=== PATIENT | female | born 1960 | race Caucasian/White ===

== ENCOUNTER → 2017-01-18 | Outpatient (CLI) | payer BC ==
--- NOTE | 2017-01-20 10:47 | MM ---
Reason for exam: screening (asymptomatic). Last mammogram was performed 1 year and 2 months ago. History: Patient had first child at age 36. Physical Findings: A clinical breast exam by your physician is recommended on an annual basis and results should be correlated with mammographic findings. MG 3D Screening Mammo W/Cad Bilateral CC and MLO view(s) were taken. Prior study comparison: November 27, 2015, bilateral MG screening mammo w CAD. November 04, 2013, bilateral MG screening mammo w CAD. The breast tissue is heterogeneously dense. This may lower the sensitivity of mammography. No significant changes when compared with prior studies. ASSESSMENT: Negative, BI-RAD 1 RECOMMENDATION: Routine screening mammogram of both breasts in 1 year.
== END | disposition home or self-care (01) ==
LOC: RADMAMWWP 06:57
PROVIDERS: ATTEND Family Medicine
DX: Z12.31 Encounter for screening mammogram for malignant neoplasm of breast (principal)
CPT/HCPCS: 77063; G0202

== ENCOUNTER → 2017-05-16 | Outpatient (CLI) | payer BC ==
--- NOTE | 2017-05-17 08:23 | XR ---
Left shoulder HISTORY: Left shoulder pain 3 views of the left shoulder Bone mineralization, joint spaces and alignment are maintained. Left lung apex as visualized is milton l. IMPRESSION: No fracture or dislocation. Shoulder MRI may be of benefit.
== END | disposition home or self-care (01) ==
LOC: RADXRYALE 16:16
PROVIDERS: ATTEND Family Medicine
DX: M25.512 Pain in left shoulder (principal)

== ENCOUNTER → 2018-03-02 | Outpatient (CLI) | payer BC ==
--- NOTE | 2018-03-08 09:49 | MM ---
Reason for exam: screening (asymptomatic). Last mammogram was performed 1 year and 1 month ago. History: Patient had first child at age 36. Physical Findings: A clinical breast exam by your physician is recommended on an annual basis and results should be correlated with mammographic findings. MG 3D Screening Mammo W/Cad Bilateral CC and MLO view(s) were taken. Prior study comparison: January 18, 2017, bilateral MG 3d screening mammo w/cad. November 27, 2015, bilateral MG screening mammo w CAD. The breast tissue is heterogeneously dense. This may lower the sensitivity of mammography. There is no discrete abnormality. ASSESSMENT: Negative, BI-RAD 1 RECOMMENDATION: Routine screening mammogram of both breasts in 1 year.
== END ==
LOC: RADMAMWWP 14:59
PROVIDERS: ATTEND Obstetrics & Gynecology
DX: Z12.31 Encounter for screening mammogram for malignant neoplasm of breast (principal)
CPT/HCPCS: 77063; 77067

== ENCOUNTER → 2018-03-26 | Outpatient (CLI) | payer BC ==
--- NOTE | 2018-03-26 07:58 | US ---
EXAMINATION TYPE: US pelvis complete transvag DATE OF EXAM: 03/26/2018 COMPARISON: NONE CLINICAL HISTORY: N93.8 dys uterine bleeding. TECHNIQUE: Transvaginal (TV) and Transabdominal (TA) . Transabdominal sonographic images of the pel vis were acquired. Transvaginal sonographic images were medically necessary to better assess the fol lowing anatomy: Date of LMP: no regular cycles for 2 years, irregular cycles off and on. patient has never gone 1 ye ar without cycles. EXAM MEASUREMENTS: Uterus: 8.7 x 5.1 x 7.4 cm Endometrial Stripe: 0.3 cm Right Ovary: 2.9 x 2.0 x 2.1 cm Left Ovary: 2.9 x 2.9 x 2.5 cm 1. Uterus: Anteverted heterogeneous echotexture, bulky uterus. At least one fibroid seen, anterior measures 1.4 x 1.3 x 1.5 cm. Nabothian cyst measures 2.1 x 1.6 x 1.8 cm. 2. Endometrium: difficult to discern due to heterogeneous uterus although does not appear enlarged 3. Right Ovary: wnl 4. Left Ovary: 2.3 x 1.7 x 2.2 cm cyst. 5. Bilateral Adnexa: wnl 6. Posterior cul-de-sac: no free fluid IMPRESSION: 1. Diffusely heterogenous uterus with at least one well-circumscribed probable uterine leiomyoma wilver uring 1.5 cm but suspicion for other less well circumscribed uterine leiomyomas given the diffuse het erogeneity. 2. Although the endometrium is difficult to visualize given the diffuse heterogeneity of the uterine myometrium this appears within normal limits measuring approximately 3 mm. 3. Simple appearing 2.3 cm left ovarian cyst. In a postmenopausal female annual surveillances recomme nded for small uncomplicated cysts.
[2018-03-26 17:42] LABS: T3, Uptake 28 % (23-37)
[2018-03-26 17:43] LABS: Progesterone <0.2 ng/mL
[2018-03-27 02:57] LABS: T4, Free (Free Thyroxine) 1.41 ng/dL (0.78-2.19)
== END | disposition home or self-care (01) ==
LOC: RADUSWWP 06:48
PROVIDERS: ATTEND Obstetrics & Gynecology
DX: N83.202 Unspecified ovarian cyst, left side (principal); N93.8 Other specified abnormal uterine and vaginal bleeding
CPT/HCPCS: 36415; 76830; 76856; 82670; 83001; 83002; 84144; 84146; 84439; 84443; 84479; 84481

== ENCOUNTER → 2018-04-19 | Outpatient (CLI) | payer BC ==
[2018-04-19 08:10] LABS: Basophils % (A) 0 %; Eosinophils # (A) 0.1 k/uL (0-0.7); Eosinophils % (A) 1 %; HCT 42.2 % (34.0-46.0); HGB 12.9 gm/dL (11.4-16.0); Lymphocytes # (A) 1.6 k/uL (1.0-4.8); Lymphocytes % (A) 19 %; MCHC 30.7 g/dL (31.0-37.0); MCV 88.1 fL (80.0-100.0); Mean Platelet Volume 6.7; Monocytes # (A) 0.4 k/uL (0-1.0); Monocytes % (A) 5 %; Neutrophils % (A) 72 %; Platelet Count 413 k/uL (150-450); RBC 4.79 m/uL (3.80-5.40); WBC 8.3 k/uL (3.8-10.6)
== END | disposition home or self-care (01) ==
LOC: LABPAT 07:14
PROVIDERS: ATTEND Obstetrics & Gynecology
DX: Z01.818 Encounter for other preprocedural examination (principal); Z01.812 Encounter for preprocedural laboratory examination
CPT/HCPCS: 36415; 85025; 93005

== ENCOUNTER 2018-04-26 07:15 | Day surgery (SDC) | payer BC ==
[2018-04-24 14:36] VITALS: BMI 29.2
--- NOTE | 2018-04-25 18:06 | P.HPOB ---
History of Present Illness H&P Date: 04/25/18 Chief Complaint: Postmenopausal bleeding Dipika is a 57-year-old female with worsening vaginal bleeding over the last 12 months. She has not gone for more than a year without having. However, labs revealed her to be postmenopausal. Risks/benefits/alternatives to a D&C with hysteroscopy have been reviewed with the patient in detail and all questions were answered for her prior to proceeding to the operating room. Endometrium was noted to be normal but due to the fact that she continues to have vaginal bleeding and tissue sample to verify no hyperplasia or cancer has been decided on. On physical exam vital signs are stable and afebrile. Heart regular, lungs clear, extremities are without pain. Abdomen is soft nontender. Pelvic exam is otherwise unremarkable. Past Medical History Past Medical History: Hypertension Additional Past Medical History / Comment(s): post menopausal bleeding History of Any Multi-Drug Resistant Organisms: None Reported Past Surgical History: Section, Orthopedic Surgery Additional Past Surgical History / Comment(s): cervical discectomy. colonoscopy. rt wrist sx x 2 Past Anesthesia/Blood Transfusion Reactions: Previous Problems w/ Anesthesia, Motion Sickness Additional Past Anesthesia/Blood Transfusion Reaction / Comment(s): STATES HAS WOKE UP DURING PROCEDURES WITH MAC ANESTHESIA Smoking Status: Former smoker - Past Family History Mother Family Medical History: No Reported History Medications and Allergies Home Medications Medication Instructions Recorded Confirmed Type Losartan [Cozaar] 25 mg PO DAILY 04/24/18 04/24/18 History Allergies Allergy/AdvReac Type Severity Reaction Status Date / Time amoxicillin AdvReac Itching Verified 04/24/18 14:29 Exam Osteopathic Statement: *. No significant issues noted on an osteopathic structural exam other than those noted in the History and Physical/Consult. - OBG Physical Exam Breast: both: normal (no masses) Abdomen: bowel sounds normal, no diffuse tenderness, no bruit present, no guarding noted, no hepatomegaly, no splenomegaly, no mass Vulva: both: normal Vagina: normal moisture, no discharge Cervix: no lesion, no discharge Uterus: normal size, normal contour Adnexa: both: normal Anus/Rectum: normal perianal skin, no rectal mass, no hemorrhoids, heme negative
[~2018-04-26 07:15] MED LIST: DEXAMETHASONE SOD PHOSPHATE 10 MG/ML 1 ML VIAL IV ONE; LACTATED RINGERS 1,000 ML IV SCH; LIDOCAINE 1% 20 ML VIAL (10MG/ML) FOR IV START INTRADERMA PRN; MIDAZOLAM (PF) 2 MG/2 ML VIAL IV PRN; ONDANSETRON 4 MG/2 ML VIAL IVP ONE; Pre Op ABX Message 1 EACH MISC MISCELLANE ONE; fentaNYL (PF) 50 MCG/ML 2 ML AMP IV PRN
[2018-04-26] MEDS ORDERED: LIDOCAINE 1% INJ 10MG/ML (20 ML MDV) ONE (09:07)
[2018-04-26] MEDS ORDERED: KETOROLAC 30 MG/ML 1 ML VIAL ONE (09:07)
[2018-04-26] MEDS ORDERED: PROPOFOL 10 MG/ML 20 ML VIAL IV ONE (09:07)
[2018-04-26] MEDS ORDERED: fentaNYL (PF) 50 MCG/ML 2 ML AMP ONE (09:07)
[2018-04-26] MEDS ORDERED: MIDAZOLAM 2 MG/2 ML VIAL ONE (09:07)
--- NOTE | 2018-04-26 09:48 | P.OP ---
Date of Procedure: 04/26/18 Preoperative Diagnosis: Postmenopausal bleeding Postoperative Diagnosis: Same Procedure(s) Performed: Dilation and curettage Anesthesia: CECELIA Surgeon: Francesco Gan Estimated Blood Loss (ml): 5 Pathology: other (Uterine curettings) Condition: stable Disposition: same day Operative Findings: Scant tissue is noted. Was unable to do hysteroscopy due to cervical stenosis Description of Procedure: Patient was taken to the operating suite where general anesthetic was found be adequate. She was prepped and draped in normal sterile fashion placed in dorsal lithotomy position. Speculum was inserted into the vagina and the anterior lip of cervix was identified and grasped with a Allis clamp. Cervical stenosis is noted hemostat was initially used to enter the outer part of the cervix and then Hanks dilators were used to dilate the cervix. Was only able to dilate up about two [address] up would've liked to due to the stenosis. I was unable to pass the hysteroscope through the cervical os. Therefore sharp curettings of endometrium were obtained and sent to pathology for evaluation. No significant pathology is noted grossly and minimal tissue was collected. Once this was completed all instruments were removed. Sponge, lap, needle counts were all correct 2. Patient was then taken to the recovery room in stable and satisfactory condition. Plan - Discharge Summary Discharge Rx Participant: Yes New Discharge Prescriptions: New Ibuprofen [Motrin] 600 mg PO Q6HR PRN #30 tab PRN Reason: Pain No Action Losartan [Cozaar] 25 mg PO DAILY Discharge Medication List Losartan [Cozaar] 25 mg PO DAILY 04/24/18 [History] Ibuprofen [Motrin] 600 mg PO Q6HR PRN #30 tab 04/26/18 [Rx] Follow up Appointment(s)/Referral(s): Francesco Gan DO [Doctor of Osteopathic Medicine] - 1 Week Activity/Diet/Wound Care/Special Instructions: No heavy lifting, limit stairs and driving, and pelvic rest. If any high temperatures, heavy bleeding, or severe pain call my office Discharge Disposition: HOME SELF-CARE
[2018-04-26 09:52] VITALS: TEMP 97.4
[2018-04-26] MEDS: HYDROmorphone 0.5 MG/0.5 ML SYRINGE IVP PRN ×2 (10:11→10:16)
[2018-04-26 10:16] VITALS: RESP 16
[2018-04-26 11:40] VITALS: BP 111/79; PULSE 58
== END 2018-04-26 12:05 | disposition home or self-care (01) ==
LOC: OR 07:15
PROVIDERS: ATTEND Obstetrics & Gynecology
DX: N85.8 Other specified noninflammatory disorders of uterus (principal); N85.00 Endometrial hyperplasia, unspecified; N95.0 Postmenopausal bleeding; N88.2 Stricture and stenosis of cervix uteri; I10 Essential (primary) hypertension; Z79.899 Other long term (current) drug therapy; Z88.0 Allergy status to penicillin; Z87.891 Personal history of nicotine dependence
CPT/HCPCS: 81025; 88305; 58120; J2250; J2405; J2001; J3010; J1885; J2704; J1170

== ENCOUNTER → 2018-05-25 | Outpatient (CLI) | payer BC ==
--- NOTE | 2018-05-27 16:33 | CT ---
EXAMINATION TYPE: CT abdomen pelvis w con DATE OF EXAM: 05/25/2018 HISTORY: Pelvic pain x1 year CT DLP: 733.7mGycm Automated Exposure Control for Dose Reduction was Utilized. CONTRAST: CT scan of the abdomen and pelvis is performed with IV Contrast, patient injected with 100 mL of Isov ue 300. COMPARISON: Pelvic ultrasound dated 03/26/2018. FINDINGS: LUNG BASES: No significant abnormality is appreciated. LIVER/GB: There is a hypoattenuated left hepatic lesion that is too small to accurately characterize on series 3 image 13. Remainder the liver enhances homogeneously. No cholelithiasis is seen. PANCREAS: No significant abnormality is seen. SPLEEN: No significant abnormality is seen. ADRENALS: No significant abnormality is seen. KIDNEYS: The kidneys are slightly malrotated with the axis oriented anteriorly. Kidneys enhance and e xcrete symmetrically. BOWEL: Moderate amount retained colonic stool is seen throughout the bowel. Appendix is air-filled an d within normal limits. Soft tissue density seen within the cecum could represent stool products or c ecal mass. Colonoscopy is recommended. No dilated large or small bowel is seen. Contrast does not ext end to the level of the cecum, therefore limiting evaluation of the large bowel. UTERUS/ADNEXA: There is a fluid attenuated lesion within the lower uterine segment/cervix junction th is relates to a nabothian cyst is seen on the pelvic ultrasound 03/26/2018. LYMPH NODES: No greater than 1cm abdominal or pelvic lymph nodes are appreciated. OSSEOUS STRUCTURES: Nonspecific sclerotic lesion is present within L4 however this likely relates to a bone island. OTHER: Mild amount of atherosclerosis is seen of the abdominal aorta and its branches. IMPRESSION: 1. Soft tissue density within the cecum could relate to performed stool however colonic mass is a pos sibility and colonoscopy is recommended. 2. Few sigmoid colonic diverticula without evidence of acute diverticulitis.
== END ==
LOC: RADCTMAIN 13:24
PROVIDERS: ATTEND Family Medicine
DX: K57.30 Diverticulosis of large intestine without perforation or abscess without bleeding (principal); K59.9 Functional intestinal disorder, unspecified
CPT/HCPCS: 74177; Q9967

== ENCOUNTER 2018-06-19 09:31 | Day surgery (SDC) | payer BC ==
[2018-06-14 15:08] VITALS: BMI 29.2
[~2018-06-19 09:31] MED LIST changes: -DEXAMETHASONE SOD PHOSPHATE 10 MG/ML 1 ML VIAL IV ONE; -ONDANSETRON 4 MG/2 ML VIAL IVP ONE; -Pre Op ABX Message 1 EACH MISC MISCELLANE ONE; -fentaNYL (PF) 50 MCG/ML 2 ML AMP IV PRN
[2018-06-19 09:57] VITALS: RESP 16; TEMP 97.9
[2018-06-19] MEDS ORDERED: PROPOFOL 10 MG/ML 20 ML VIAL IV ONE (10:37)
[2018-06-19] MEDS ORDERED: LIDOCAINE 1% INJ 10MG/ML (20 ML MDV) ONE (10:37)
--- NOTE | 2018-06-19 11:00 | P.PCN ---
Date of Procedure: 06/19/18 Procedure(s) Performed: Procedure: Total colonoscopy. Preoperative diagnosis: Screening for neoplasia. Postoperative diagnosis: Diverticulosis with no evidence of acute diverticulitis, strictures, polyps or cancer. Preparation: HalfLytely prep. Sedation: Was provided by anesthesia. Brief clinical history: The patient is a 57-year-old female who is scheduled for this evaluation for screening for neoplasia. The patient had a prior exam in 2013, however, she had a recent CT of the abdomen because of abdominal pains that raised the possibility of a cecal mass. Procedure: With the patient on her left lateral decubitus position and after informed consent and adequate sedation, the perianal area was inspected and it did not show any fissures or fistulas. There were no masses felt on digital rectal examination. The Olympus CFH 190L video colonoscope was then inserted in the rectum in the usual fashion and advanced to the cecum. There was few diverticular orifices seen scattered in the sigmoid and occasional orifices around the hepatic flexure and on the right side with no evidence of acute diverticulitis or strictures. Particular attention was made to the cecum. It appeared normal there were no masses or polyps. I retroflexed the endoscope in the rectum before the endoscope was withdrawn. The patient tolerated the procedure well. Plan: The patient was reassured. Discussed dietary measures. She will follow- up with you as planned and I recommended repeat exam in 10 years.
[2018-06-19 11:23] VITALS: BP 145/82; PULSE 65
== END 2018-06-19 11:31 | disposition home or self-care (01) ==
LOC: ORWHC2ENDO 09:31
DX: Z12.11 Encounter for screening for malignant neoplasm of colon (principal); I10 Essential (primary) hypertension; K57.30 Diverticulosis of large intestine without perforation or abscess without bleeding; Z86.73 Personal history of transient ischemic attack (TIA), and cerebral infarction without residual deficits; Z88.0 Allergy status to penicillin; Z79.899 Other long term (current) drug therapy
CPT/HCPCS: 81025; J2001; J2704; G0121

== ENCOUNTER → 2018-07-04 | Outpatient (CLI) | payer BC ==
--- NOTE | 2018-07-09 13:32 | MR ---
EXAMINATION TYPE: MR lumbar spine wo con DATE OF EXAM: 07/04/2018 COMPARISON: CT abdomen and pelvis May 25, 2018 HISTORY: Low back pain TECHNIQUE: Multiplanar, multisequence imaging of the lumbar spine is performed without IV contrast. FINDINGS: Sagittal images of the lumbar spine show vertebral body heights and alignment to appear sat isfactory. Multilevel disc desiccation is seen but disc space heights are fairly well-maintained. Mil d multilevel anterior spurring is present. The conus medullaris is normal in position and signal end ing at inferior L1 level. Hemangioma at L2 vertebra sagittal image 8 is noted. Axial images show the T11-T12 and T12-L1 levels to appear within normal limits. Axial images at L1-L2 level show mild broad disc bulge minimally effacing anterior thecal sac. Axial images at L2-L3 level are felt within normal limits. Axial images at L3-L4 level show mild broad disc bulge mildly effacing anterior thecal sac. Axial images at L4-L5 level show mild/moderate facet degenerative changes bilaterally. There is broad -based posterior disc protrusion minimally effacing anterior thecal sac. There is mild right-sided an terior inferior neural foraminal narrowing. Left-sided neural foramen is patent. Axial images at the L5-S1 level show mild to moderate facet degenerative changes bilaterally. Spinal canal is preserved. Bilateral neural foramina are patent. There is suggestion of greater than 1 cm ovarian cyst sagittal image 4 to the left of midline which c orrelates with CT sagittal image 64. IMPRESSION: Some multilevel degenerative changes in the lumbar spine most prominent L4-L5 level as de tailed above. Suspect greater than 1 cm thin-walled cyst left ovary which is abnormal finding in post menopausal female, this correlates with pelvic ultrasound March 26, 2018.
--- NOTE | 2018-07-09 13:38 | MR ---
MRI CERVICAL SPINE: CLINICAL HISTORY: Cervical disc displacement per order. Numbness into left fingers with forearm pain per patient. History of prior surgery. TECHNIQUE: Multiplanar, multisequence imaging of the cervical spine is performed without and with IV contrast, 7.5 cc of gadolinium was given intravenously. COMPARISON: Outside MRI cervical spine July 21, 2012 FINDINGS: Sagittal images of the cervical spine show the craniocervical junction to remain within nor mal limits. The cervical and upper thoracic spinal cord remains normal in course, caliber, and signa l. There is stable grade 1 retrolisthesis of C5 on C6 and to lesser degree C6 on C7. There is now art ifact from fusion hardware anterior aspects C5-C6 vertebra. The vertebral body and intravertebral dis k heights otherwise are normal. The bone marrow signal intensity is within normal limits. No suspici ous enhancement is seen. Axial images at the C2-C3 level redemonstrate stable tiny central disc protrusion mildly effacing ant erior thecal sac on axial image 46. Axial images at C3-C4 level remain within normal limits. Axial images at C4-C5 level redemonstrate broad-based central disc protrusion mildly effacing anterio r thecal sac, bilateral neural foramina are patent. No significant change from prior. Axial images at C5-C6 level show artifact from surgical hardware with persistent posterior disc protr usion effacing anterior thecal sac on axial image 22, there is persistent mild right greater than lef t bilateral neural foraminal narrowing. No progression noted from prior. Axial images at C6-C7 level show broad-based central disc protrusion effacing anterior thecal sac and spondylolysis, bilateral neural foramina are patent. Axial images at C7-T1 level show central disc protrusion mildly effacing anterior thecal sac on axial image 6, no significant progression from prior. Bilateral neural foramina are patent. IMPRESSION: Interval surgery C5-C6 level with stable alignment. Multilevel degenerative changes redem onstrated without new significant disc herniation or significant progression from outside 2013 MRI.
== END | disposition home or self-care (01) ==
LOC: RADMRIMAIN 07:29
PROVIDERS: ATTEND Family Medicine
DX: M50.20 Other cervical disc displacement, unspecified cervical region (principal); M54.5 Low back pain
CPT/HCPCS: 72148; 72156; A9585

== ENCOUNTER → 2018-08-07 | Outpatient (CLI) | payer BC ==
[2018-08-07 11:45] LABS: Anion Gap 11 mmol/L; Blood Urea Nitrogen 11 mg/dL (7-17); Calcium 9.7 mg/dL (8.4-10.2); Carbon Dioxide 27 mmol/L (22-30); Chloride 103 mmol/L (98-107); Glucose 105 mg/dL (74-99); Potassium 4.2 mmol/L (3.5-5.1); Sodium 141 mmol/L (137-145)
[2018-08-07 12:16] LABS: Basophils % (A) 0 %; Eosinophils # (A) 0.1 k/uL (0-0.7); Eosinophils % (A) 2 %; HCT 42.4 % (34.0-46.0); HGB 13.4 gm/dL (11.4-16.0); Lymphocytes # (A) 1.6 k/uL (1.0-4.8); Lymphocytes % (A) 20 %; MCH 27.5 pg (25.0-35.0); MCHC 31.5 g/dL (31.0-37.0); MCV 87.1 fL (80.0-100.0); Mean Platelet Volume 7.2; Monocytes # (A) 0.4 k/uL (0-1.0); Monocytes % (A) 5 %; Neutrophils # (A) 5.6 k/uL (1.3-7.7); Neutrophils % (A) 71 %; Platelet Count 440 k/uL (150-450); RBC 4.87 m/uL (3.80-5.40); RDW 15.4 % (11.5-15.5); WBC 7.8 k/uL (3.8-10.6)
== END | disposition home or self-care (01) ==
LOC: LABWHC1 10:27
PROVIDERS: ATTEND Obstetrics & Gynecology
DX: Z01.812 Encounter for preprocedural laboratory examination (principal)
CPT/HCPCS: 36415; 80048; 85025

== ENCOUNTER 2018-08-13 05:43 | Day surgery (SDC) | payer BC ==
[~2018-08-13 05:43] MED LIST changes: +DEXAMETHASONE SOD PHOSPHATE 10 MG/ML 1 ML VIAL IV ONE; -LACTATED RINGERS 1,000 ML IV SCH; -MIDAZOLAM (PF) 2 MG/2 ML VIAL IV PRN; +MIDAZOLAM 2 MG/2 ML VIAL IV PRN; +ceFAZolin IN SWFI 2 GM/20 ML SYRINGE IVP ONE; +fentaNYL (PF) 50 MCG/ML 2 ML AMP IV PRN
[2018-08-13] MEDS: LACTATED RINGERS 1,000 ML IV SCH ×3 (06:42→13:58)
[2018-08-13] MEDS ORDERED: ONDANSETRON 4 MG/2 ML VIAL IVP ONE ×2 (06:44→11:16)
[2018-08-13] MEDS ORDERED: BUPIVACAINE (PF) 0.25% 30 ML VIAL SQ ONE ×3 (07:33→09:38)
[2018-08-13] MEDS ORDERED: fentaNYL (PF) 50 MCG/ML 2 ML AMP ONE (09:09)
[2018-08-13] MEDS ORDERED: ROCURONIUM BROMIDE 10 MG/ML 10 ML VIAL IV ONE (09:09)
[2018-08-13] MEDS ORDERED: PROPOFOL 10 MG/ML 20 ML VIAL IV ONE (09:09)
[2018-08-13] MEDS ORDERED: NEOSTIGMINE 1 MG/ML 10 ML VIAL ONE (09:09)
[2018-08-13] MEDS ORDERED: MIDAZOLAM 2 MG/2 ML VIAL ONE (09:09)
[2018-08-13] MEDS ORDERED: SUCCINYLCHOLINE CHLORIDE 100 MG/5 ML SYR IV ONE (09:09)
[2018-08-13] MEDS ORDERED: GLYCOPYRROLATE 0.2 MG/ML 2 ML VIAL ONE (09:09)
[2018-08-13] MEDS ORDERED: ONDANSETRON 4 MG/2 ML VIAL IVP PRN (10:58)
[2018-08-13] MEDS ORDERED: SIMETHICONE 80 MG CHEWABLE PO PRN (10:58)
[2018-08-13] MEDS ORDERED: Acetaminophen-Codeine 300-30mg TAB PO PRN ×2 (10:58)
[2018-08-13] MEDS ORDERED: MEPERIDINE 50 MG/ML SYRINGE IVP ONE (11:09)
--- NOTE | 2018-08-13 11:09 | P.OP ---
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 Bowel stuck to the posterior uterus just above the uterosacral ligament attachments as well as left ovary and tube scarred to the posterior uterus. Uterus very limited in mobility initially but after scar tissue was brought down there was significant improvement in mobility. Description of Procedure: Patient was taken to the operating suite where a general anesthetic was found be adequate. She was prepped and draped in normal sterile fashion and placed in the dorsal lithotomy position. Initially a weighted speculum was inserted in the vagina and the anterior lip of the cervix identified and grasped with a single-tooth tenaculum. Cervix was then sounded to 8 cm and dilated. Sutures were then placed 3 and 9 for assistance in removal of the uterus. Once this was accomplished Zora manipulator was inserted with a length of 8 and a width of 2.5 and once this was positioned Garcia cath was placed other instruments were re moved from the vagina. Gloves were then changed and attention was turned to abdominal portion procedure where 1 mL of quarter percent Marcaine was injected periumbilically. Through this injected anesthetic a setting a 5 mm skin incision was made and through this incision under direct visualization with an optical trocar and sleeve the camera was inserted. Once peritoneal placement was assured gas without the fully insufflate the abdomen and patient was placed in steep Trendelenburg position. 2 lateral ports were then placed approximately 10 cm from the umbilicus on the same level as the umbilicus through 8 mm skin incisions. These were da Citlali ports and sleeves a fourth port and sleeve was then inserted between the left lateral and the camera port 31 cm incision. Once all incisions were placed the left scopic was removed and a robotic port and sleeve were inserted followed by bringing in and docking the robot. Once robot was fully docked I did break scrub and go to the console with a Metzenbaum and the one hand and a [place] grasper in the 2. Uterus very difficult to initially elevate out of the pelvis at all once wheeled to fully assess we can see an endometrioma attached the left ovary adhering it to the posterior uterus and then the pelvis in the deep area head descending colon/rectum adherent to the uterosacral region of the uterus area right fallopian tube and ovary were otherwise normal. Sharp dissection and blunt dissection of the fallopian tube free from the posterior uterus was then done allowing it to be completely free we were able to then do in the infundibular pelvic ligament cauterized transected and then bring the tissue through the broad ligament tissues freeing the ovary and fallopian tube. Once were able to get to the round ligament probably was cauterized and transected and then anterior posterior leafs the broad ligament were developed. Anterior leaf the broad lid was then brought across face the uterus by undermining the tissue with [place] and incised with the scissor once fully across the uterus we were able to bluntly dissect the bladder out of the operative field. Attention was then turned to the right side this tissue was similarly developed. Once uterine vascular was cauterized bilaterally and upper adhesions were freed we did then do blunt dissection of the descending colon and rectum from the posterior cul-de-sac freeing it from its scarring behind the uterus just above the uterosacral ligament area. This was done bluntly with some brief sharp dissection to free the tissues as carefully as possible so we do bring them down below where we were actually doing the dissection. Once it was completely out of the expected operative field balloon was blown up and anterior compartment was made. This tissue was t hen followed in a clockwise fashion following the blue cup until about 9:00 at which point we did switch and then do clockwise from approximately 1:[address] around and meeting at 9:00 and cheating head when necessary cauterizing vascularity try maintaining hemostasis. There was one area a blood vessel along the border of the right side of the vaginal cuff that was bleeding along the pedicles collect cautery was ultimately able to obtain most of the hemostasis on this area but that was the reason for the relatively large blood loss for the robotic procedure. Once the uterus and cervix were completely dissected free from vagina was pushed down into the vagina and left there for pneumoperitoneum. At this point once of the majority ablate bleeding was controlled we did exchange the incidents for a cardia grasper and a make suture cut and a oh the lock suture was used to obtain the initial corner and then I did on the right side and then I did back track a little bit to try and get under the vessel that was bleeding earlier today Hemostasis once this was accomplished I brought the incision needle back into the vaginal cuff and close the vaginal cuff in a running fashion as per usual. Once this was accomplished minimal bleeding was noted anywhere in the pelvis. However a piece of cervix for CHOLO's no was placed as a precaution due to how much bleeding there was earlier as noted. Once all this was completed instruments were removed and gas allowed to expel from the abdomen. Dr. Hope and close these incisions subcuticularly with 4-0 Vicryl applied another 8 mL of quarter percent Marcaine around the incisions. I did do a cystoscopy and excellent flow was noted from both ureteral jets. No other abnormalities or findings are noted. Garcia catheter was replaced. Instruments are removed sponge, lap, needle counts were all correct 2. Patient was then taken to the recovery room in stable and satisfactory condition.
[2018-08-13] MEDS ORDERED: diphenhydrAMINE 50 MG/ML 1 ML VIAL IVP ONE (11:35)
[2018-08-13] MEDS ORDERED: METOCLOPRAMIDE 5 MG/ML 2 ML VIAL IVP ONE (11:53)
[2018-08-13 12:51] VITALS: BMI 29.1
[2018-08-13] MEDS: KETOROLAC 30 MG/ML 1 ML VIAL IVP PRN ×2 (13:51→20:12)
[2018-08-13] MEDS: SENNOSIDES-DOCUSATE SODIUM 1 EACH TAB PO SCH (20:12)
[2018-08-14 07:05] LABS: Basophils % (A) 0 %; Eosinophils % (A) 0 %; HCT 35.3 % (34.0-46.0); HGB 11.1 gm/dL (11.4-16.0); Lymphocytes % (A) 16 %; MCH 27.5 pg (25.0-35.0); MCHC 31.6 g/dL (31.0-37.0); Mean Platelet Volume 6.8; Monocytes # (A) 0.7 k/uL (0-1.0); Monocytes % (A) 6 %; Neutrophils # (A) 9.3 k/uL (1.3-7.7); Neutrophils % (A) 75 %; Platelet Count 381 k/uL (150-450); RBC 4.05 m/uL (3.80-5.40); RDW 15.2 % (11.5-15.5); WBC 12.4 k/uL (3.8-10.6)
[2018-08-14] MEDS: KETOROLAC 30 MG/ML 1 ML VIAL IVP PRN (07:56)
[2018-08-14] MEDS: SENNOSIDES-DOCUSATE SODIUM 1 EACH TAB PO SCH (08:00)
--- NOTE | 2018-08-14 08:01 | P.DS ---
Providers Expected date of discharge: 08/14/18 Attending physician: Francesco Gan [facility] Course: Dipika is doing very well postop day 1. She is involuting, voiding and she is tolerating her diet. We will advance to regular diet prior to discharge. She is passing flatus. On physical exam vital signs are stable and afebrile. Heart regular, lungs clear, extremities without pain. Abdomen is soft there are good bowel sounds noted through all quadrants. Incisions are intact. Assessment postop day 1. Plan discharged home follow up with me in 1 week. Prescription for Tylenol 3 and Motrin are provided and all questions were answered. There are review of discharge instructions was also completed. Assessment postop day 1. Plan discharged home follow up in 1 week. Patient Condition at Discharge: Good Plan - Discharge Summary Discharge Rx Participant: Yes New Discharge Prescriptions: New Ibuprofen [Motrin] 600 mg PO Q6HR PRN #30 tab PRN Reason: Pain Acetaminophen-Codeine 300-30mg [Tylenol #3] 1 tab PO Q4H PRN #30 tablet PRN Reason: Pain No Action Losartan [Cozaar] 25 mg PO QAM Discharge Medication List Losartan [Cozaar] 25 mg PO QAM 04/24/18 [History] Acetaminophen-Codeine 300-30mg [Tylenol #3] 1 tab PO Q4H PRN #30 tablet 08/14/18 [Rx] Ibuprofen [Motrin] 600 mg PO Q6HR PRN #30 tab 08/14/18 [Rx] Follow up Appointment(s)/Referral(s): Francesco Gan DO [Doctor of Osteopathic Medicine] - 1 Week Activity/Diet/Wound Care/Special Instructions: No heavy lifting, limit stairs and driving, and pelvic rest. If any high temperatures, heavy bleeding, or severe pain call my office Discharge Disposition: HOME SELF-CARE
[2018-08-14 12:03] VITALS: BP 139/73; PULSE 68; RESP 18; TEMP 98.6
== END 2018-08-14 10:10 | disposition home or self-care (01) ==
LOC: OR 05:43 → 4FBP 10:54 → OR 08-14 10:10
PROVIDERS: ATTEND Obstetrics & Gynecology
DX: N95.0 Postmenopausal bleeding (principal); N83.201 Unspecified ovarian cyst, right side; N80.1 Endometriosis of ovary; N80.0 Endometriosis of uterus; D25.9 Leiomyoma of uterus, unspecified; N83.8 Other noninflammatory disorders of ovary, fallopian tube and broad ligament; Z88.0 Allergy status to penicillin; Z87.891 Personal history of nicotine dependence; Z79.899 Other long term (current) drug therapy
CPT/HCPCS: 85025; 88307; 58571; J2250; J1200; J1100; J2710; J2765; J2175; J2405; J3010; J1885 ×2; J0330; J2704; J0690; 86850; 86900; 86901

== ENCOUNTER → 2018-12-04 | Outpatient (CLI) | payer BC ==
[2018-12-04 11:19] VITALS: BP 153/94; PULSE 69; RESP 16
--- NOTE | 2018-12-04 14:00 | P.PAINCN ---
History of Present Illness - Reason for Consult Consult date: 12/04/18 - History of Present Illness This is a 58-year-old patient referred to us or chronic pain in right buttock area and with radiation down the right leg. She states that 90% of her pain is in the right leg and 10% of her pain is in the right low back buttock area. She states that her pain started probably 15 years ago after a chiropractic adjustment. Previously was intermittent in nature, however in the past 1.5 years and has more been constant. She thinks that she has had some pain procedures for this pain, but she cannot remember exactly what it was, it could be that she had an epidural injection. These injections were marginally benefit. She also complains of some neck pain, however this is a minority of her pain, thus we focus on her low back and leg today. Her leg pain starts in her left buttock area, and radiates down the back of her thigh, the anterior portion of her knee, to her toes. She also has some pain on the back of her leg and calf also. Patient has been taking medications from primary care physician including gabapentin 600 mg in the morning, 600 mg in the afternoon, 1200 mg in the afternoon with benefit. Patient denies adverse drug effects from medications. Patient also denies new-onset weakness, bowel/bladder incontinence, or any other signs or symptoms of cauda equina syndrome. There are no signs of acute intoxication, and no indications of medication diversion or overuse. Patient notes that pain worsens significantly with activity and improves with rest, and medication. Patient has not had lumbar spine surgery but has had some cervical neck surgery. Patient HAS had injections previously. Patient HAS NOT had physical therapy recently. In addition to above, 13-point review of systems is also negative for chest pain, shortness of breath, changes in vision, changes in hearing, new onset weakness, abdominal pain, diarrhea, extreme fatigue, malaise, fever, skin changes, homicidal or suicidal ideation, or bowel or bladder incontinence. Past Medical History Past Medical History: CVA/TIA, Hypertension Additional Past Medical History / Comment(s): [id number] History of Any Multi-Drug Resistant Organisms: None Reported Past Surgical History: Section, Hysterectomy, Orthopedic Surgery Additional Past Surgical History / Comment(s): D & C,RT WRIST SX X 2. NECK SX fusion, COLONOSCOPY Past Anesthesia/Blood Transfusion Reactions: Previous Problems w/ Anesthesia, Postoperative Nausea & Vomiting (PONV) Additional Past Anesthesia/Blood Transfusion Reaction / Comm: WOKE UP DURING SURGERY with twilight anesthesia Past Psychological History: No Psychological Hx Reported Smoking Status: Former smoker Past Alcohol Use History: Occasional Additional Past Alcohol Use History / Comment(s): QUIT SMOKING 20 YEARS AGO Past Drug Use History: None Reported - Past Family History Mother Family Medical History: No Reported History Medications and Allergies Home Medications Medication Instructions Recorded Confirmed Type Gabapentin 1,200 mg PO HS 11/30/18 12/04/18 History Gabapentin 600 mg PO BID 11/30/18 12/04/18 History Losartan [Cozaar] 50 mg PO DAILY 11/30/18 12/04/18 History Naproxen Sodium [Aleve] 440 mg PO DAILY PRN 11/30/18 12/04/18 History Allergies Allergy/AdvReac Type Severity Reaction Status Date / Time amoxicillin Allergy Itching Verified 12/04/18 11:08 Physical Exam Vitals: Vital Signs Pulse Resp BP Pulse Ox 12/04/18 11:09 69 16 153/94 96 Vital Signs: Reviewed in EMR GENERAL: Well appearing, in no acute distress, PSYCH: Mood and affect is appropriate. Awake, alert, and oriented SKIN: Skin color, texture, turgor normal, no rashes or lesions HEENT: Normocephalic, atraumatic. EOM intact CV: No pedal edema RESP: Respirations are unlabored, no audible wheezing GI: Abdomen non-distended MUSCULOSKELETAL: Bilateral upper and lower extremity strength is normal and symmetric. No atrophy or tone abnormalities are noted. Lumbar spine: Very mild pain to palpation over the lumbar spine and paraspinous muscles. Negative for pain with facet loading and back extension/rotation. With seated straight leg test, she does report crampy-like sensation down her left leg. Extremities: Peripheral joint ROM is full and pain free without obvious instability or laxity in all four extremities. No edema or skin discolorations noted. Gait: Gait is anantalgic NEUR: Bilateral upper and lower extremity coordination and muscle stretch reflexes are physiologic and symmetric. No loss of sensation is noted. Cranial nerves are grossly intact. Results Comments: She has a lumbar MRI from 07/04/2018. The impression was some multilevel degenerative changes in the lumbar spine most prominent L4-L5 level as detailed above. She has a broad base disc bulge minimally effacing the anterior thecal sac at L4-L5. EMG from 11/13/2018 shows evidence of some right tibial mononeuropathy L5/S1 Assessment and Plan Assessment: Assessment: 1. Lumbar radiculopathy without myelopathy 2. Lumbar spondylosis 3. Cervicalgia, s/p neck surgery Today we focused primarily on her low back pain, if her neck pain becomes more problematic, we can consider procedures in that area. Plan: 1. Explanation: I explained to her the likely cause of her pain, given that she primarily has leg pain, her pain is likely lumbar radicular pain from her disc bulge. However the MRI shows only minor effacement of the thecal sac. Given that the disc bulges most prominent at the L4-L5 level we will pursue this option. Of note the EMG does show possible mononeuropathy, right tibial at L5- S1. The epidural at L4-L5 should provide some spread to the L5-S1 level, if this indeed is the primary area of her pain. 2. Opioid agreement: None 3. Counseling: The patient was counseled on stay active, specifically if the pa in improves with the epidural steroid injection she should aggressively pursue physical therapy. She did not receive a physical therapy prescription today, however if she should want to obtain one from our clinic we would gladly provided. 4. Procedures: We have scheduled her for a L4-L5 left paramedian epidural steroid injection. 5. Consultations: None 6. Investigations: Lumbar, cervical MRI reviewed. EMG reviewed 7. Medications: Encouraged patient to have discussions with primary care physician and continue gabapentin 8. Disposition: For lumbar epidural steroid injection , PQRS Measure Charge Sheet PQRS Narrative: Smoking Status Former smoker Blood Pressure 153/94 Pain Intensity [Left Buttock] 7 Scale Used Numeric (1 - 10) Hx Alcohol Use (MH) Yes: occasional Home Medications: Ambulatory Orders Gabapentin 1,200 mg PO HS 11/30/18 Gabapentin 600 mg PO BID 11/30/18 Losartan [Cozaar] 50 mg PO DAILY 11/30/18 Naproxen Sodium [Aleve] 440 mg PO DAILY PRN 11/30/18
== END | disposition home or self-care (01) ==
LOC: PNWHC3 11:02
PROVIDERS: ATTEND Student in an Organized Health Care Education/Training Program
DX: M51.16 Intervertebral disc disorders with radiculopathy, lumbar region (principal); M47.26 Other spondylosis with radiculopathy, lumbar region; M54.2 Cervicalgia; I10 Essential (primary) hypertension; Z98.1 Arthrodesis status; Z87.891 Personal history of nicotine dependence; Z79.1 Long term (current) use of non-steroidal anti-inflammatories (NSAID); Z79.899 Other long term (current) drug therapy; Z88.1 Allergy status to other antibiotic agents
CPT/HCPCS: 99211

== ENCOUNTER 2018-12-19 08:19 | Day surgery (SDC) | payer BC ==
[2018-12-17 11:36] VITALS: BMI 29.2
[~2018-12-19 08:19] MED LIST changes: -DEXAMETHASONE SOD PHOSPHATE 10 MG/ML 1 ML VIAL IV ONE; +LACTATED RINGERS 1,000 ML IV SCH; -LIDOCAINE 1% 20 ML VIAL (10MG/ML) FOR IV START INTRADERMA PRN; -MIDAZOLAM 2 MG/2 ML VIAL IV PRN; -ceFAZolin IN SWFI 2 GM/20 ML SYRINGE IVP ONE; -fentaNYL (PF) 50 MCG/ML 2 ML AMP IV PRN
[2018-12-19 08:57] VITALS: RESP 16; TEMP 96.9
[2018-12-19] MEDS ORDERED: IV FLUID CONTINUATION 850 ML IV ONE (10:11)
[2018-12-19 10:27] VITALS: BP 120/81; PULSE 62
--- NOTE | 2018-12-19 10:36 | P.PCN ---
Date of Procedure: 12/19/18 Procedure(s) Performed: PREOPERATIVE DIAGNOSIS: 1- Lumbar radiculopathy, Lumbar Degenerative Disc Diseases 2-Lumbar spondylosis with Facet arthropathy without myelopathy POSTOPERATIVE DIAGNOSIS: 1-Lumber Degenerative Disc Diseases 2-Lumbar spondylosis with Facet arthropathy without myelopathy PROCEDURE 1. Lumbar epidural steroid injection under fluoroscopic guidance at the L4-5 level using a left paramedian approach 2. Lumbar epidurogram. ANESTHESIA: Local with 1% lidocaine 3 ml, moderate sedation with intravenous Versed and fentanyl, sedation time 7 minutes Fluoroscopy was used for the procedure and images were saved in the radiology portion of the chart. EBL: Minimal PROCEDURE INDICATION: The patient with low back pain and radiculitis symptoms unresponsive to conservative treatment. Fluoroscopy was used to optimize visualization of the needle placement and to maximize safety. PROCEDURE DESCRIPTION / TECHNIQUE: The patient was seen and identified in the preoperative area. Risks, benefits, complications including but not limited to infections ,bleeding ,allergic reaction to the medications ,nerve damage and incomplete pain releif , and alternatives were discussed with the patient. The patient agreed to proceed with the procedure and signed the consent. IV was started, and vital signs were stable. Patient was taken to the OR and time out was completed. The patient was placed in the prone position on procedure table and a pillow was placed under the abdomen to reduce lumbar lordosis. The lumbosacral area was prepped and draped in the usual sterile fashion. Vitals were closely monitored during the procedure. Conscious sedation was used during the procedure to decrease patients anxiety. Using anterior-posterior fluoroscopy, the L4-5 interlaminar space was identified and the skin over this site was marked and then infiltrated with 1% lidocaine subcutaneously. Subsequently, a 20-gauge 3.5" Tuohy epidural needle was inserted and advanced toward the epidural space using the loss of resistance technique and guided by AP and lateral/ oblique fluoroscopy. The correct needle position in the epidural space was verified with the injection of 2 mL of the water soluble contrast dye Isovue 200 contrast under live fluoroscopy, observing an excellent epidurogram. Then, after negative aspiration for blood and CSF and in the absence of paresthesias, a 5 ml mixture containing 80 mg of Depo-medrol , 3 ml of preservative free Normal Saline, and 1 ml of preservative free lidocaine 1% solution was injected and a washout epidurogram was seen. Needle was withdrawn intact, skin was cleansed, and bandages were applied. COMPLICATIONS: None DISPOSITION / PLANS: The patient was placed in a supine position and transferred to the recovery area in a stable condition for observation. There was no evidence of lower extremity motor or sensory deficit after the procedure. Patient was discharged from the recovery room after meeting discharge criteria. Home discharge instructions were given to the patient by the staff. The patient will schedule a follow up in the clinic in 2-4 weeks.
--- NOTE | 2018-12-19 11:46 | FL ---
EXAMINATION TYPE: FL guided pain mgmt statistic DATE OF EXAM: 12/19/2018 HISTORY: Flouroscopy time 5 seconds of fluoroscopy provided. IMPRESSION: 1. Fluoroscopy time.
== END 2018-12-19 10:38 | disposition home or self-care (01) ==
LOC: ORPAIN 08:19
PROVIDERS: ATTEND Anesthesiology
DX: G89.29 Other chronic pain (principal); M47.26 Other spondylosis with radiculopathy, lumbar region; M51.16 Intervertebral disc disorders with radiculopathy, lumbar region; I10 Essential (primary) hypertension; Z86.73 Personal history of transient ischemic attack (TIA), and cerebral infarction without residual deficits; Z90.710 Acquired absence of both cervix and uterus; Z98.1 Arthrodesis status; Z87.891 Personal history of nicotine dependence; Z88.0 Allergy status to penicillin
CPT/HCPCS: 62323; J2250; J1030; J3010; Q9966

== ENCOUNTER → 2019-01-16 | Day surgery (SDC) | payer BC ==
[2019-01-14 11:25] VITALS: BMI 29.2
[2019-01-16 08:42] VITALS: TEMP 98.2
--- NOTE | 2019-01-16 09:36 | P.PCN ---
Date of Procedure: 01/16/19 Procedure(s) Performed: PREOPERATIVE DIAGNOSIS: Lumbar radicular pain POSTOPERATIVE DIAGNOSIS: Same PROCEDURE Lumbar epidural steroid injection under fluoroscopic guidance at the at L4-L5 level. ANESTHESIA: Local with 1% lidocaine 3 ml; no sedation was used EBL: Minimal PROCEDURE INDICATION: Lumbar radicular pain. PROCEDURE DESCRIPTION / TECHNIQUE: The patient was seen and identified in the preoperative area. Risks, benefits, complications including but not limited to infections ,bleeding ,allergic reaction to the medications ,nerve damage and not complete pain relief , and alternatives were discussed with the patient. The patient agreed to proceed with the procedure and signed the consent. IV was started, and vital signs were stable. Patient was taken to the OR and time out was completed. The patient was placed in the prone position on procedure table and a pillow was placed under the abdomen to reduce lumbar lordosis. The lumbosacral area was prepped and draped in the usual sterile fashion. The patient was closely monitored during the procedure. Conscious sedation was used during the procedure to decrease patients anxiety. Vital signs was monitored during the entire procedure. Using anterior-posterior fluoroscopy, the 4L5 interlaminar space was identified and the skin over this site was marked and then infiltrated with 1% lidocaine subcutaneously. Subsequently, a 20-gauge Tuohy epidural needle was inserted and advanced toward the epidural space using the loss of resistance technique and guided by AP and lateral fluoroscopy. The correct needle position in the epidural space was verified. After negative aspiration, a solution containing 80 mg Depo-Medrol, 2 mL's of 1% lidocaine, 2 MRIs of 1% preservative-free normal saline was injected. The needle was withdrawn intact, skin was cleansed, and bandages were applied. Images were saved to the chart. COMPLICATIONS: None DISPOSITION / PLANS: The patient was returned to the supine position and transferred to the recovery area in a stable condition for observation. There was no evidence of lower extremity motor or sensory deficit after the procedure. Patient was discharged from the recovery room after meeting discharge criteria. Home discharge instructions were given to the patient by the staff. Follow up plan: In clinic in a few weeks
[2019-01-16 09:42] VITALS: RESP 16
[2019-01-16 10:08] VITALS: BP 123/83; PULSE 61
--- NOTE | 2019-01-16 10:47 | FL ---
EXAMINATION TYPE: FL guided pain mgmt statistic DATE OF EXAM: 01/16/2019 HISTORY: Pain 10 SEC FLUORO, 3 IMAGES SCANNED
== END ==
LOC: ORPAIN 08:18
PROVIDERS: ATTEND Student in an Organized Health Care Education/Training Program
DX: M54.16 Radiculopathy, lumbar region (principal); Z90.710 Acquired absence of both cervix and uterus
CPT/HCPCS: 62323; J1030; Q9966

== ENCOUNTER → 2019-02-06 | Outpatient (CLI) | payer BC ==
[2019-02-06 13:15] VITALS: BP 135/91; PULSE 77; RESP 18
--- NOTE | 2019-02-08 12:55 | P.PAINPG ---
Subjective Progress Note Date: 02/06/19 This is a 58-year-old patient referred to us or chronic pain in right buttock area and with radiation down the right leg. She was diagnosed with lumbar radiculopathy, lumbar spondylosis. She underwent lumbar epidural steroid injections at L4-5 on 12/19/2018 and 01/16/2019. She returns today for follow- up. She reports no significant benefit from these procedures. Pain relief lasted may be a few days, but was not significant. She feels that a significant amount of her pain is generated from the left SI joint region. Pain is primarily located in the left buttock, and radiating to left posterior thigh. She also has some pain in left anterior leg. She states that she cannot lie on her left side due to pain. She does endorse numbness and tingling in the plantar aspect of her foot. She denies any weakness. Patient has been taking medications from primary care physician including gabapentin 600 mg in the morning, 600 mg in the afternoon, 1200 mg at night as well as Aleve 400-600 mg twice a day with some benefit. Patient denies adverse drug effects from medications. Patient also denies new-onset weakness, bowel/bladder incontinence, or any other signs or symptoms of cauda equina syndrome. There are no signs of acute intoxication, and no indications of medication diversion or overuse. In addition to above, 13-point review of systems is also negative for chest pain, shortness of breath, changes in vision, changes in hearing, new onset weakness, abdominal pain, diarrhea, extreme fatigue, malaise, fever, skin changes, homicidal or suicidal ideation, or bowel or bladder incontinence. Physical Exam Vital Signs: Reviewed in EMR GENERAL: Well appearing, in no acute distress, PSYCH: Mood and affect is appropriate. Awake, alert, and oriented SKIN: Skin color, texture, turgor normal, no rashes or lesions HEENT: Normocephalic, atraumatic. EOM intact CV: No pedal edema RESP: Respirations are unlabored, no audible wheezing GI: Abdomen non-distended MUSCULOSKELETAL: Bilateral upper and lower extremity strength is normal and symm etric. No atrophy or tone abnormalities are noted. Lumbar spine: Tenderness to palpation over the lumbar spine and paraspinous muscles bilaterally. SI joints: Tender to palpation of left PSIS. Diamond's test is positive on the left, Marisela test is positive on the left, Gaenslen's test positive on the left Extremities: Peripheral joint ROM is full and pain free without obvious instability or laxity in all four extremities. No edema or skin discolorations noted. NEUR: Bilateral lower extremity coordination and muscle stretch reflexes are physiologic and symmetric. No loss of sensation is noted. Cranial nerves are grossly intact. Results Comments: She has a lumbar MRI from 07/04/2018. The impression was some multilevel degenerative changes in the lumbar spine most prominent L4-L5 level as detailed above. She has a broad base disc bulge minimally effacing the anterior thecal sac at L4-L5. EMG from 11/13/2018 shows evidence of some right tibial mononeuropathy L5/S1 Assessment and Plan Assessment: Assessment: 1. Lumbar radiculopathy without myelopathy 2. Lumbar spondylosis 3. Left SI joint dysfunction 3. Cervicalgia, status post surgery Today we focused primarily on her low back pain, if her neck pain becomes more problematic, we can consider procedures in that area. Plan: 1. Explanation: I explained to her pain is likely multifactorial, due to lumbar radiculopathy, lumbar spondylosis as well as SI joint dysfunction. She obtained no benefit from lumbar epidural steroid injection. We will perform a left sided SI joint injection, I did extend to the patient that this is unlikely to help her anterior leg pain. She expressed understanding and is agreeable since her primary pain complaint is left buttocks. 2. Opioid agreement: None 3. Counseling: The patient was counseled to stay active, specifically if the pain improves with SI joint injection she should aggressively pursue physical therapy. She did not receive a physical therapy prescription today, however if she should want to obtain one from our clinic we would gladly provided. 4. Procedures: We have scheduled her for a left SI joint injection 5. Consultations: None 6. Investigations: Lumbar MRI reviewed. EMG reviewed 7. Medications: Managed by primary care physician 8. Disposition: For left SI joint injection , Objective - Vital Signs Vital signs: Vital Signs Temp Pulse 77 02/06/19 13:09 Resp 18 02/06/19 13:09 BP 135/91 02/06/19 13:09 Pulse Ox 97 02/06/19 13:09 PQRS Measure Charge Sheet Measure #130: Documentation of Current Meds in Medical Chart: Patient's medications documented in chart Measure #226: Tobacco Use: Screen & Cessation Intervention: Pt not a tobacco user Measure #111: Pneumonia Vaccination: Pneumococcal vaccine NOT administered or previously given Measure #47: Advance Care Plan: Advance care planning discussed & documented, pt chose/unable to give Measure #412: Opioid Treatment Agreement: No documentation of signed opioid treatment agreement Measure #408: Opioid Therapy Follow-up Evaluation: Patient had NO f/u eval minimum every 3 months during opioid therapy Measure #317: Preventitive Care & Scrn High Bld Press & F/U: Pre-hypertensive or hypertensive BP documented, pt will f/u with PCP Measure #128: Body Mass Index (BMI) Screening & Follow-up: BMI documented within normal parameters Measure #131: Pain Assessment & Follow-up: Pain positive & plan documented, Follow-up scheduled Measure #431: Unhealthy Alcohol Use Preventative Care & Scrn: Patient not identified as an unhealthy alcohol user PQRS Narrative: Smoking Status Former smoker Blood Pressure 135/91 Pain Intensity [Back] 3 Scale Used Numeric (1 - 10) Hx Alcohol Use (MH) Yes: occasional Home Medications: Ambulatory Orders Gabapentin 1,200 mg PO HS 11/30/18 Gabapentin 600 mg PO BID 11/30/18 Losartan [Cozaar] 50 mg PO DAILY 11/30/18 Naproxen Sodium [Aleve] 440 mg PO DAILY PRN 11/30/18 Controlled Substance Measures - Controlled Substance Measures Is patient prescribed a controlled substance at discharge?: No
== END | disposition home or self-care (01) ==
LOC: PNWHC3 13:03
PROVIDERS: ATTEND Anesthesiology
DX: M47.26 Other spondylosis with radiculopathy, lumbar region (principal); M53.3 Sacrococcygeal disorders, not elsewhere classified; Z98.890 Other specified postprocedural states; Z87.891 Personal history of nicotine dependence; Z79.1 Long term (current) use of non-steroidal anti-inflammatories (NSAID); Z79.899 Other long term (current) drug therapy
CPT/HCPCS: 99211

== ENCOUNTER 2019-02-18 06:29 | Day surgery (SDC) | payer BC ==
[2019-02-14 15:24] VITALS: BMI 29.7
[2019-02-18 06:47] VITALS: TEMP 97.1
--- NOTE | 2019-02-18 07:29 | P.PCN ---
Date of Procedure: 02/18/19 Procedure(s) Performed: Preoperative diagnoses: left sacroilitis Postoperative diagnoses: left sacroilitis. Procedure: left sacroiliac joint steroid injection under fluoroscopic guidance. Surgeon: Raomn Perez MD Anesthesia: [2 mL of 1% lidocaine/IV sedation per hospital guidelines], no IV sedation was given Fluoroscopy was used for the procedure and fluoroscopic images were saved to the radiology portion of the patient's chart. EBL: None Procedure indication: The patient had a history of severe chronic low back pain, diagnosed with sacroiliitis unresponsive to conservative treatment. Procedure description: The patient was seen and identified in the preoperative holding area, risks and benefits and alternative of the procedure and possible complications discussed with the patient, and patient agreed with the preceding, patient signed the consent, an IV was started, and vital signs were monitored and were stable throughout the procedure, patient was placed in the prone position on table and the lumbosacral area was prepped and draped with a sterile fashion, vital signs were closely monitored during the procedure, the fluoroscopy camera was placed in the contralateral oblique view on the left sacroiliac joint and the lower part of the joint was identified . Then the skin and subcutaneous tissue was anesthetized using 2 mL of 1% lidocaine then a 22- gauge Quincke-type spinal needle advanced slowly under fluoroscopy and placed in the posterior and inferior border of the left sacroiliac joint, placement confirmed with AP and lateral view, and after appropriate needle placement confirmed and after negative aspiration for heme, 1 mL of Isovue 200 was injected revealing intra-articular spread. Then a solution consisting of 2 ml of ropivacaine 0.5% and 40 mg of Kenalog injected after negative aspiration, no paresthesia during the injection, no resistance to injection, and the needle was removed. Patient tolerated the procedure well without any complication. The patient was returned to supine position after the back was cleaned and a Band-Aid applied, the patient was transported to recovery room in stable condition and monitored for 30 minutes before being discharged home. The patient will follow up with the pain clinic in a few weeks
[2019-02-18 07:35] VITALS: BP 135/89; PULSE 66; RESP 16
--- NOTE | 2019-02-18 09:23 | FL ---
EXAMINATION TYPE: FL guided pain mgmt statistic DATE OF EXAM: 02/18/2019 HISTORY: Flouroscopy time 5 seconds of fluoroscopy provided. IMPRESSION: 1. Fluoroscopy time.
== END 2019-02-18 07:52 | disposition home or self-care (01) ==
LOC: ORPAIN 06:29
PROVIDERS: ATTEND Anesthesiology
DX: G89.29 Other chronic pain (principal); M46.1 Sacroiliitis, not elsewhere classified; M53.3 Sacrococcygeal disorders, not elsewhere classified; M47.26 Other spondylosis with radiculopathy, lumbar region; M51.16 Intervertebral disc disorders with radiculopathy, lumbar region; Z88.0 Allergy status to penicillin; Z87.891 Personal history of nicotine dependence; Z79.899 Other long term (current) drug therapy
CPT/HCPCS: 27096; J3301; Q9966

== ENCOUNTER → 2019-02-22 | Outpatient (CLI) | payer BC ==
--- NOTE | 2019-02-22 14:43 | US ---
EXAMINATION TYPE: US carotid duplex BILAT DATE OF EXAM: 02/22/2019 COMPARISON: NONE CLINICAL HISTORY: G45.9 TIA. Dizziness EXAM MEASUREMENTS: RIGHT: Peak Systolic Velocity (PSV) cm/sec ----- Right CCA: 81.5 ----- Right ICA: 128 ----- Right ECA: 117 ICA/CCA ratio: 1.5 RIGHT: End Diastole cm/sec ----- Right CCA: 23.1 ----- Right ICA: 30.6 ----- Right ECA: 10.2 LEFT: Peak Systolic Velocity (PSV) cm/sec ----- Left CCA: 90.4 ----- Left ICA: 105 ----- Left ECA: 95.2 ICA/CCA ratio: 1.1 LEFT: End Diastole cm/sec ----- Left CCA: 25.1 ----- Left ICA: 68.6 ----- Left ECA: 14.6 VERTEBRALS (direction of flow): Right Vertebral: Antegrade Left Vertebral: Antegrade Rhythm: Normal Moderate amount of plaque visualized in bilateral bulbs. Slightly elevated velocity in proximal right ICA although the internal carotid artery to common carotid artery ratio is within normal limits. IMPRESSION: Moderate degree of grayscale atheromatous plaquing with no sonographically evident hemod ynamically significant stenosis within either visualized carotid arterial system. Criteria for Assigning % of Stenosis / Diameter reduction (Estimation based on the indirect measurements of the internal carotid artery velocities (ICA PSV). 1. Normal (no stenosis)=ICA PSV < 125 cm/s: ratio < 2.0: ICA EDV<40 cm/s. 2. Less than 50% stenosis=ICA PSV < 125 cm/s: ratio < 2.0: ICA EDV<40 cm/s. 3. 50 to 69% stenosis=ICA PSV of 125 to 230 cm/s: ration 2.0 ? 4.0: ICA EDV 40-100 cm/s. 4. Greater than 70% stenosis to near occlusion= ICA PSV > 230 cm/s: ratio > 4.0: ICA EDV > 100 cm/s. 5. Near occlusion= ICA PSV velocities may be low or undetectable: variable ratio and ICA EDV. 6. Total occlusion=unable to detect flow.
--- NOTE | 2019-02-23 10:43 | ECHOF ---
Referral Reason:G45.9 TIA MEASUREMENTS -------- HEIGHT: 162.6 cm WEIGHT: 77.1 kg BP: RVIDd: 3.5 cm (< 3.3) IVSd: 0.9 cm (0.6 - 1.1) LVIDd: 4.6 cm (3.9 - 5.3) LVPWd: 0.9 cm (0.6 - 1.1) IVSs: 1.5 cm LVIDs: 2.9 cm LVPWs: 1.3 cm LAESV Index (A-L): 19.14 ml/m Ao Diam: 2.5 cm (2.0 - 3.7) AV Cusp: 1.7 cm (1.5 - 2.6) LA Diam: 3.4 cm (2.7 - 3.8) MV EXCURSION: 10.087 mm (> 18.000) MV EF SLOPE: 98 mm/s (70 - 150) EPSS: 0.3 cm MV E Zia: 0.67 m/s MV DecT: 355 ms MV A Zia: 0.70 m/s MV E/A Ratio: 0.95 RAP: 5.00 mmHg RVSP: 25.74 mmHg FINDINGS -------- Sinus rhythm. This was a technically good study. The left ventricular size is normal. Left ventricular wall thickness is normal. There is normal g lobal left ventricular contractility. Overall left ventricular systolic function is normal with, an EF between 60 - 65 %. The diastolic filling pattern is normal for the age of the patient 11.17. The right ventricle is normal in size. Normal LA size by volume 22+/-6 ml/m2. The right atrial size is normal. Interatrial and interventricular septum intact. The aortic valve is trileaflet and appears structurally normal. There is no evidence of aortic regu rgitation. There is no evidence of aortic stenosis. No mitral regurgitation. Mild tricuspid regurgitation present. There is no evidence of pulmonary hypertension. The right v entricular systolic pressure, as measured by Doppler, is 25.74mmHg. There is no pulmonic regurgitation present. The aortic root size is normal. Normal inferior vena cava with normal inspiratory collapse consistent with estimated right atrial pre ssure of 5 mmHg. There is no pericardial effusion. CONCLUSIONS -------- 1. Sinus rhythm. 2. This was a technically good study. 3. The left ventricular size is normal. 4. Left ventricular wall thickness is normal. 5. There is normal global left ventricular contractility. 6. Overall left ventricular systolic function is normal with, an EF between 60 - 65 %. 7. The diastolic filling pattern is normal for the age of the patient 11.17 8. The right ventricle is normal in size. 9. Normal LA size by volume 22+/-6 ml/m2. 10. The right atrial size is normal. 11. Interatrial and interventricular septum intact. 12. The aortic valve is trileaflet and appears structurally normal. 13. There is no evidence of aortic regurgitation. 14. There is no evidence of aortic stenosis. 15. No mitral regurgitation. 16. Mild tricuspid regurgitation present. 17. There is no evidence of pulmonary hypertension. 18. The right ventricular systolic pressure, as measured by Doppler, is 25.74mmHg. 19. There is no pulmonic regurgitation present. 20. The aortic root size is normal. 21. Normal inferior vena cava with normal inspiratory collapse consistent with estimated right atrial pressure of 5 mmHg. 22. There is no pericardial effusion. SOFTWARE DEVELOPMENT PROJECT MANAGER: Aishwarya Haider RDCS
== END | disposition home or self-care (01) ==
LOC: RADECHMAIN 13:02
PROVIDERS: ATTEND Family Medicine
DX: I65.23 Occlusion and stenosis of bilateral carotid arteries (principal); G45.9 Transient cerebral ischemic attack, unspecified
CPT/HCPCS: 93306; 93880

== ENCOUNTER → 2019-02-23 | Outpatient (CLI) | payer BC ==
--- NOTE | 2019-02-23 20:35 | MR ---
EXAMINATION TYPE: MR brain wo/w con DATE OF EXAM: 02/23/2019 COMPARISON: None HISTORY: TIA CONTRAST: Standard multiplanar, multisequence MRI departmental protocol utilizing 7.5 mL intravenous Gadavist g adolinium contrast. Ventricles have normal size. There is no mass effect nor midline shift. There is no sign of intracran ial hemorrhage. Diffusion images show no evidence of a cortical infarct. There is no evidence of cere bral edema. On the T2 and FLAIR images there are a few scattered areas of white matter increased sign al at the joshua-white matter junction of both cerebral hemispheres. Total number is approximately 5 an d the largest measures 6 mm. The brainstem is intact. Corpus callosum is intact. There is normal contrast opacification of the venous sinuses. I see no pathologic enhancement. Corpus callosum appears normal. Sella turcica is normal. IMPRESSION: There are a few scattered white matter high signal foci of uncertain significance. This could relate to minimal microvascular ischemia. Otherwise negative exam.
== END | disposition home or self-care (01) ==
LOC: RADMRIMAIN 11:12
PROVIDERS: ATTEND Family Medicine
DX: G45.9 Transient cerebral ischemic attack, unspecified (principal)
CPT/HCPCS: 70553; A9585

== ENCOUNTER → 2019-03-25 | Outpatient (CLI) | payer BC ==
--- NOTE | 2019-03-26 11:35 | MM ---
Reason for exam: screening (asymptomatic). Last mammogram was performed 1 year and 1 month ago. History: Patient is postmenopausal and had first child at age 36. Physical Findings: A clinical breast exam by your physician is recommended on an annual basis and results should be correlated with mammographic findings. MG 3D Screening Mammo W/Cad Bilateral CC and MLO view(s) were taken. Prior study comparison: March 02, 2018, bilateral MG 3d screening mammo w/cad. January 18, 2017, bilateral MG 3d screening mammo w/cad. There are scattered fibroglandular densities. There is no discrete abnormality. No significant changes when compared with prior studies. ASSESSMENT: Negative, BI-RAD 1 RECOMMENDATION: Routine screening mammogram of both breasts in 1 year.
== END | disposition home or self-care (01) ==
LOC: RADMAMWWP 08:01
PROVIDERS: ATTEND Family Medicine
DX: Z12.31 Encounter for screening mammogram for malignant neoplasm of breast (principal)
CPT/HCPCS: 77063; 77067

== ENCOUNTER 2019-10-03 06:21 | Day surgery (SDC) | payer BC ==
[2019-10-01 15:59] VITALS: BMI 27.9
[2019-10-03 06:39] VITALS: RESP 20; TEMP 97.4
[2019-10-03] MEDS ORDERED: TRIAMCINOLONE ACETONIDE 40 MG/ML 1 ML VIAL ONE (06:56)
[2019-10-03] MEDS ORDERED: IOPAMIDOL M200 10 ML VIAL ONE (06:56)
[2019-10-03] MEDS ORDERED: ROPIVACAINE 5MG/ML 20ML VIAL ONE (06:56)
--- NOTE | 2019-10-03 07:20 | P.PCN ---
Date of Procedure: 10/03/19 Procedure(s) Performed: Preoperative diagnoses: left sacroilitis Postoperative diagnoses: left sacroilitis. Procedure: left sacroiliac joint steroid injection under fluoroscopic guidance. Surgeon: Ramon Perez MD Anesthesia: 2 mL of 1% lidocaine, no IV sedation was given Fluoroscopy was used for the procedure and fluoroscopic images were saved to the radiology portion of the patient's chart. EBL: None Procedure indication: The patient had a history of severe chronic low back pain, diagnosed with sacroiliitis unresponsive to conservative treatment. Procedure description: The patient was seen and identified in the preoperative holding area, risks and benefits and alternative of the procedure and possible complications discussed with the patient, and patient agreed with the preceding, patient signed the consent, an IV was started, and vital signs were monitored and were stable throughout the procedure, patient was placed in the prone position on table and the lumbosacral area was prepped and draped with a sterile fashion, vital signs were closely monitored during the procedure, the fluoroscopy camera was placed in the contralateral oblique view on the left sacroiliac joint and the lower part of the joint was identified . Then the skin and subcutaneous tissue was anesthetized using 2 mL of 1% lidocaine then a 22- gauge Quincke-type spinal needle advanced slowly under fluoroscopy and placed in the posterior and inferior border of the left sacroiliac joint, placement confirmed with AP and lateral view, and after appropriate needle placement confirmed and after negative aspiration for heme, 1 mL of Isovue 200 was injected revealing intra-articular spread. Then a solution consisting of 2 ml of ropivacaine 0.5% and 40 mg of Kenalog injected after negative aspiration, no paresthesia during the injection, no resistance to injection, and the needle was removed. Patient tolerated the procedure well without any complication. The patient was returned to supine position after the back was cleaned and a Band-Aid applied, the patient was transported to recovery room in stable condition and monitored for 30 minutes before being discharged home. The patient will follow up with the pain clinic in a few weeks
[2019-10-03 07:40] VITALS: BP 115/70; PULSE 69
--- NOTE | 2019-10-03 08:20 | FL ---
EXAMINATION TYPE: FL guided pain mgmt statistic DATE OF EXAM: 10/03/2019 HISTORY: Fluoroscopy time 8 seconds of fluoroscopy provided. IMPRESSION: 1. Fluoroscopy time.
== END 2019-10-03 07:51 | disposition home or self-care (01) ==
LOC: ORPAIN 06:21
PROVIDERS: ATTEND Anesthesiology
DX: G89.29 Other chronic pain (principal); M46.1 Sacroiliitis, not elsewhere classified; Z88.0 Allergy status to penicillin; Z90.710 Acquired absence of both cervix and uterus
CPT/HCPCS: 27096; J3301; Q9966; J2795

== ENCOUNTER → 2019-11-13 | Outpatient (CLI) | payer BC ==
[2019-11-13 13:00] VITALS: BP 127/83; TEMP 98.3
[2019-11-13 13:04] VITALS: PULSE 66; RESP 16
--- NOTE | 2019-11-16 06:53 | P.PAINPG ---
Subjective Progress Note Date: 11/13/19 This is a follow-up visit for 59-year-old patient with history of chronic pain in rig buttock area and with radiation to the leg She was diagnosed with lumbar radiculopathy, lumbar spondylosis. She reports no significant benefit from these procedures. Pain relief lasted may be a few days, but was not s ignificant. She feels that a significant amount of her pain is generated from the left SI joint region. Pain is primarily located in the left buttock, and radiating to left posterior thigh. She also has some pain in left anterior leg. She states that she cannot lie on her left side due to pain. She does endorse numbness and tingling in the plantar aspect of her foot. She denies any weakness. Patient has been taking medications from primary care physician including gabapentin 600 mg in the morning, 600 mg in the afternoon, 1200 mg at night as well as Aleve 400-600 mg twice a day with some benefit. Patient denies adverse drug effects from medications. Patient also denies new-onset weakness, bowel/bladder incontinence, or any other signs or symptoms of cauda equina syndrome. There are no signs of acute intoxication, and no indications of medication diversion or overuse. In addition to above, 13-point review of systems is also negative for chest pain, shortness of breath, changes in vision, changes in hearing, new onset weakness, abdominal pain, diarrhea, extreme fatigue, malaise, fever, skin changes, homicidal or suicidal ideation, or bowel or bladder incontinence. Objective - Vital Signs Vital signs: Vital Signs Temp 98.3 F 11/13/19 12:55 Pulse 66 11/13/19 12:55 Resp 16 11/13/19 12:55 BP 127/83 11/13/19 12:55 Pulse Ox 96 11/13/19 12:55 - Exam Physical Examinations : -Constitutiona : Cooperative , not in acute distress . -HEENT : nech : supple , no Lymphadenopathy , normal thyroid size . : eyes : no ptosis , no icterus, no photophobia . - neurologic : Cranial nerve II to XII intact , no focal neurological deffecit . -psychatric : alert , oriented X 3 , appropriate affect , intact judgment and insight . -Lymphatic : no Lymphadenopathy . - musculoskeltal : Lumber spine moter stegnth lower extremities ,thigh and legs 5/5 Right side , 5/5 Left side deep tendon reflexes : normal Knee Jerk , normal ankle Jerk lumber facet Loading Test =positive Right , positive Left Range of motion of the lumbar spine Flexion 30 degrees, extension 10 degrees strait leg raising test = positive at 30 degree on the left side Fabere test= positive Right , and positive LT . Sever tenderness over the Sacroiliac joint on the Left sides Gaenslen test= positive left . Seated flexion test= positive Left . Assessment and Plan Plan: Assessment and plan=1-lumbar radiculopathy. 2-left sacroiliitis. 3-lumbar spondylosis with lumbar facet arthropathy. Patient could benefit from left-sided transforaminal epidural steroid injection at the L4 5 , and left sacroiliac joint steroid injection Time with Patient: Less than 30 PQRS Measure Charge Sheet Measure #130: Documentation of Current Meds in Medical Chart: Patient's medications documented in chart Measure #226: Tobacco Use: Screen & Cessation Intervention: Pt not a tobacco user Measure #111: Pneumonia Vaccination: Pneumococcal vaccine NOT administered or previously given Measure #47: Advance Care Plan: Advance care planning discussed & documented, pt chose/unable to give Measure #412: Opioid Treatment Agreement: No documentation of signed opioid treatment agreement Measure #408: Opioid Therapy Follow-up Evaluation: Patient had NO f/u eval minimum every 3 months during opioid therapy Measure #317: Preventitive Care & Scrn High Bld Press & F/U: Normal blood pressure, f/u not required Measure #128: Body Mass Index (BMI) Screening & Follow-up: BMI documented ABOVE normal parameters - f/u documented Measure #131: Pain Assessment & Follow-up: Pain positive & plan documented, Follow-up scheduled, Follow-up PRN Measure #431: Unhealthy Alcohol Use Preventative Care & Scrn: Patient not identified as an unhealthy alcohol user PQRS Narrative: Smoking Status Former smoker Blood Pressure 127/83 Pain Intensity [Left Leg] 3 Scale Used Numeric (1 - 10) Hx Alcohol Use (MH) Yes: occasional Home Medications: Ambulatory Orders Gabapentin 1,200 mg PO HS 11/30/18 Losartan [Cozaar] 50 mg PO DAILY 11/30/18 Naproxen Sodium [Aleve] 440 mg PO DAILY PRN 11/30/18 Aspirin 81 mg PO DAILY 10/01/19 Controlled Substance Measures - Controlled Substance Measures Is patient prescribed a controlled substance at discharge?: No
== END | disposition home or self-care (01) ==
LOC: PNWHC3 12:43
PROVIDERS: ATTEND Specialist
DX: G89.29 Other chronic pain (principal); M47.26 Other spondylosis with radiculopathy, lumbar region; M46.1 Sacroiliitis, not elsewhere classified; Z87.891 Personal history of nicotine dependence; Z79.82 Long term (current) use of aspirin; Z79.1 Long term (current) use of non-steroidal anti-inflammatories (NSAID)
CPT/HCPCS: 99211

== ENCOUNTER 2019-11-28 11:49 | Day surgery (SDC) | payer BC ==
[2019-11-26 09:14] VITALS: BMI 27.4
[2019-11-28 12:09] VITALS: TEMP 97.7
[2019-11-28] MEDS ORDERED: DEXAMETHASONE SOD PHOSPHATE 10 MG/ML 1 ML VIAL ONE (12:23)
[2019-11-28] MEDS ORDERED: ROPIVACAINE 5MG/ML 20ML VIAL ONE (12:23)
[2019-11-28] MEDS ORDERED: TRIAMCINOLONE ACETONIDE 40 MG/ML 1 ML VIAL ONE (12:23)
[2019-11-28] MEDS ORDERED: fentaNYL (PF) 50 MCG/ML 2 ML AMP ONE (12:23)
[2019-11-28] MEDS ORDERED: MIDAZOLAM 2 MG/2 ML VIAL ONE (12:23)
[2019-11-28] MEDS ORDERED: IOPAMIDOL M200 10 ML VIAL ONE (12:23)
--- NOTE | 2019-11-28 12:53 | P.PCN ---
Date of Procedure: 11/28/19 Surgeon: Mercy Lee Pathology: none sent Condition: stable Disposition: PACU Description of Procedure: PREOPERATIVE DIAGNOSIS: Left Lumbar radiculopathy , left sacroiliitis POSTOPERATIVE DIAGNOSIS: Left Lumbar radiculopathy , left sacroiliitis PROCEDURE 1. Transforaminal epidural steroid injection under fluoroscopic guidance at L4-5 left 2. Lumbar epidurogram. 3. Left sacroiliac joint steroid injection under fluoroscopic guidance SURGEON: Mercy Lee MD I started by doing the left transforaminal epidural steroid injection at the L4 5 level in the following manner: ANESTHESIA: Local with 1% lidocaine; IV sedation with Versed and fentanyl. EBL: Minimal PROCEDURE INDICATION: The patient with low back pain and radiculopathy symptoms unresponsive to conservative treatment. PROCEDURE DESCRIPTION / TECHNIQUE: The patient was seen and identified in the preoperative area. Risks, benefits, complications, and alternatives were discussed with the patient. The patient agreed to proceed with the procedure and signed the consent. IV was started, and vital signs were stable. Patient was taken to the OR and time out was completed. The patient was placed in the prone position on procedure table and a pillow was placed under the abdomen to reduce lumbar lordosis. The lumbosacral area was prepped and draped in the usual sterile fashion. Critical pause was taken. Vital signs were closely monitored during the procedure. Conscious sedation was used during the procedure to decrease patients anxiety. The vertebral body of the lumbar vertebra L4 was squared off by tilting the C-arm cephalad then the C-arm was tilted to the oblique position and the target point was at the 6 o'clock position of the pedicle of then skin and deeper tissues were localized with 1% lidocaine. Subsequently, a 22-gauge 3.5- inch spinal needle was advanced under a tunneled view fluoroscopic guidance just underneath the chin of the Nish dog at the . Under lateral fluoroscopy, the needle was then advanced to the middle of the upper one third of the foramen between(L4-L5 ). After negative aspiration of CSF and blood and with no paresthesias, 1 mL of omnipaque contrast dye was injected excellent epidurogram and outlining of the L nerve root was identified. Subsequently, 2 mL of block solution containing 10 mg of Decadron and 1 mL of Ropivacaine 0.5% PF was injected. Needle was removed and the same . At the end of the procedure, skin was cleansed, and bandages were applied. COMPLICATIONS: None I then turned my attention into doing the sacroiliac joint steroid injection on the left side under fluoroscopic guidance in the following manner: Procedure description= The sacroiliac joint was identified on the AP view of fluoroscopy then the C-arm was tilted to the contralateral oblique position to superimpose the anterior and posterior joint lines on each other and to have a unified joint line with the target point at the inferior one third of this line. I used 22-gauge 3-1/2 inch Quincke spinal needle for this procedure and after getting into the sacroiliac joint I injected 40 mg of Kenalog +2 MLS of Ropivacaine 0.5%. Patient tolerated the procedure well without any complication, The patient returned to supine position after the back was cleaned and a Band- Aid applied, the patient transported to recovery room in stable condition and he was monitored for 30 minutes before she was discharged home in stable condition . patient will follow up with the pain clinic in a few weeks. A copy of the needle placement was saved to the C-arm machine.
[2019-11-28] MEDS ORDERED: IV FLUID CONTINUATION 1,000 ML IV ONE (12:54)
[2019-11-28 12:58] VITALS: RESP 16
--- NOTE | 2019-11-28 12:59 | FL ---
EXAMINATION TYPE: FL guided pain mgmt statistic DATE OF EXAM: 11/28/2019 HISTORY: Fluoroscopy time 15 seconds of fluoroscopy provided. IMPRESSION: 1. Fluoroscopy time.
[2019-11-28 13:20] VITALS: BP 121/75; PULSE 95
== END 2019-11-28 13:38 | disposition home or self-care (01) ==
LOC: ORPAIN 11:49
PROVIDERS: ATTEND Anesthesiology
DX: M54.16 Radiculopathy, lumbar region (principal); M46.1 Sacroiliitis, not elsewhere classified; I10 Essential (primary) hypertension; Z88.0 Allergy status to penicillin
CPT/HCPCS: 64483; 27096; J2250; J1100; J3301; J3010; Q9966; J2795; 99152

== ENCOUNTER → 2020-06-11 | Outpatient (CLI) | payer OTHER ==
--- NOTE | 2020-06-15 09:58 | MM ---
Reason for exam: screening (asymptomatic). Last mammogram was performed 1 year and 3 months ago. History: Patient is postmenopausal and had first child at age 36. Physical Findings: A clinical breast exam by your physician is recommended on an annual basis and results should be correlated with mammographic findings. MG 3D Screening Mammo W/Cad Bilateral CC and MLO view(s) were taken. Prior study comparison: March 25, 2019, bilateral MG 3d screening mammo w/cad. March 02, 2018, bilateral MG 3d screening mammo w/cad. There are scattered fibroglandular densities. No significant changes when compared with prior studies. ASSESSMENT: Negative, BI-RAD 1 RECOMMENDATION: Routine screening mammogram of both breasts in 1 year.
== END | disposition home or self-care (01) ==
LOC: RADMAMWWP 16:48
PROVIDERS: ATTEND Family Medicine
DX: Z12.31 Encounter for screening mammogram for malignant neoplasm of breast (principal); Z78.0 Asymptomatic menopausal state
CPT/HCPCS: 77063; 77067

== ENCOUNTER → 2021-03-03 | Outpatient (CLI) | payer OTHER ==
--- NOTE | 2021-03-03 20:56 | CT ---
EXAMINATION TYPE: CT abdomen pelvis w con DATE OF EXAM: 03/03/2021 COMPARISON: CT 05/25/2018 HISTORY: Right lower quadrant abdominal and pelvic pain. CT DLP: 749.8 mGycm Automated exposure control for dose reduction was used. TECHNIQUE: Helical acquisition of images from the lung bases through the pelvis have been completed. CONTRAST: Performed with Oral Contrast and with IV Contrast, patient injected with 100ml mL of Isovue 300. FINDINGS: LUNG BASES: No significant abnormality is appreciated. AORTA: No significant abnormality is appreciated. LIVER/GB: No significant abnormality is appreciated. PANCREAS: No significant abnormality is seen. SPLEEN: No significant abnormality is seen. ADRENALS: No significant abnormality is seen. 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 REPRODUCTIVE ORGANS: There is been interval hysterectomy performed, ovaries are also not seen, correl ate with appropriate history BOWEL: There is inflammatory change present in the left lower quadrant, and some scattered diverticu lar changes are present, pericolonic groundglass mesentery is present, coronal image #33, axial image #69 and 70 The appendix is normal. FREE AIR: No Free Air visible. ASCITES: None visible. PELVIC ADENOPATHY: None visualized. RETROPERITONEAL ADENOPATHY: No Retroperitoneal Adenopathy visible. URINARY BLADDER: No significant abnormality is seen. OSSEOUS STRUCTURES: Some degenerative changes present at the sacroiliac joints, there is facet arthr opathy lower lumbar spine, suspect a spinal curvature is present. IMPRESSION: CORRELATE FOR DIVERTICULITIS A [place] level critical message alert has been initiated for Howard Miller DO via the [facility] Critical Results System on 03/03/2021 8:53 PM. This message alert has been sent to Howard osuna DO via the preferences provided by the clinician for the receipt of Radiology Critical Findings . Message ID [id number].
== END | disposition home or self-care (01) ==
LOC: RADCTMAIN 15:35
PROVIDERS: ATTEND Family Medicine
DX: R10.2 Pelvic and perineal pain (principal); R10.813 Right lower quadrant abdominal tenderness; R10.814 Left lower quadrant abdominal tenderness
CPT/HCPCS: 74177; Q9967

== ENCOUNTER → 2021-06-18 | Outpatient (CLI) | payer OTHER ==
--- NOTE | 2021-06-21 11:40 | MM ---
Reason for exam: screening (asymptomatic). Last mammogram was performed 1 year ago. History: Patient is postmenopausal and had first child at age 36. Family history of breast cancer in maternal cousin. Physical Findings: A clinical breast exam by your physician is recommended on an annual basis and results should be correlated with mammographic findings. MG 3D Screening Mammo W/Cad Bilateral CC and MLO view(s) were taken. Prior study comparison: June 11, 2020, bilateral MG 3d screening mammo w/cad. March 25, 2019, bilateral MG 3d screening mammo w/cad. There are scattered fibroglandular densities. There is no discrete abnormality. No significant changes when compared with prior studies. ASSESSMENT: Negative, BI-RAD 1 RECOMMENDATION: Routine screening mammogram of both breasts in 1 year.
== END | disposition home or self-care (01) ==
LOC: RADMAMWWP 16:32
PROVIDERS: ATTEND Obstetrics & Gynecology
DX: Z12.31 Encounter for screening mammogram for malignant neoplasm of breast (principal)
CPT/HCPCS: 77063; 77067

== ENCOUNTER → 2021-09-03 | Outpatient (CLI) | payer OTHER ==
--- NOTE | 2021-09-03 16:34 | MR ---
EXAMINATION TYPE: MR pelvis wo/w con DATE OF EXAM: 09/03/2021 COMPARISON: CT abdomen pelvis 03/03/2021. CLINICAL INDICATION:Female, 60 years old with history of R10.2 pelvic and perineal pain; TECHNIQUE: Triplane multisequence imaging was performed of the pelvis. Then the patient was given c ontrast/gadolinium, 7 cc of Gadavist and multiple post contrast sequences where obtained in three vern amaury. FINDINGS: Reproductive: Vagina: Unremarkable. Uterus: Surgically absent. Ovaries: Follicular changes are noted to the ovaries. Bladder: Nondistended and no gross abnormality. Bowel: Few scattered clonic diverticula are present. Peritoneum: A small amount of free fluid in the pelvis. No evidence of adenopathy. Vasculature: Unremarkable. Abdominal wall/soft tissues: Unremarkable. Musculoskeletal: Bone marrow signal is within normal signal intensity. Sacroiliac joints do not demon strate any abnormal postcontrast enhancement or evidence of abnormal T2 signal. Minimal low T1 signal sclerosis of the iliac bone adjacent to the sacroiliac joints bilaterally, right greater than left. IMPRESSION: 1. Mild bilateral chronic appearing sacroiliac degenerative changes. No evidence of sacroiliitis. 2. No evidence for acute pelvic process. 3. Colonic diverticulosis.
== END | disposition home or self-care (01) ==
LOC: RADMRIMAIN 11:34
PROVIDERS: ATTEND Family Medicine
DX: K57.30 Diverticulosis of large intestine without perforation or abscess without bleeding (principal); M46.1 Sacroiliitis, not elsewhere classified
CPT/HCPCS: 72197; A9585

== ENCOUNTER → 2021-12-07 | Outpatient (CLI) | payer OTHER ==
--- NOTE | 2021-12-07 16:20 | XR ---
EXAMINATION TYPE: XR chest 2V DATE OF EXAM: 12/07/2021 COMPARISON: NONE HISTORY: Redness of breath TECHNIQUE: Frontal and lateral views of the chest are obtained. FINDINGS: There is no focal air space opacity, pleural effusion, or pneumothorax seen. The cardiac silhouette size is within normal limits. The osseous structures are intact, postop change noted in the cervical spine, spinal curvature noted in the lumbar spine. IMPRESSION: No acute cardiopulmonary process.
== END | disposition home or self-care (01) ==
LOC: RADXRYALE 15:43
PROVIDERS: ATTEND Physician Assistant Medical
DX: R06.02 Shortness of breath (principal)
CPT/HCPCS: 71046

== ENCOUNTER → 2022-06-20 | Outpatient (CLI) | payer OTHER ==
--- NOTE | 2022-06-20 10:06 | MM ---
Reason for Exam: Screening (asymptomatic). Last screening mammogram was performed 12 month(s) ago. Patient History: Menarche at age 17. First Full-Term at age 36. Late child-bearing (after 30). Left ovary removed at age 57. Right ovary removed at age 57. Hysterectomy at age 57. Postmenopausal. Maternal cousin had breast cancer, age 57. Risk Values: Elisa 5 year model risk: 1.7%. NCI Lifetime model risk: 9.4%. Prior Study Comparison: 03/25/2019 Bilateral Screening Mammogram, [facility]. 06/11/2020 Bilateral Screening Mammogram, [facility]. 06/18/2021 Bilateral Screening Mammogram, [facility]. Tissue Density: There are scattered fibroglandular densities. Findings: Analyzed By CAD. There is no suspicious group of microcalcifications or new suspicious mass in either breast. Overall Assessment: Negative, BI-RAD 1 Management: Screening Mammogram of both breasts in 1 year. A clinical breast exam by your physician is recommended on an annual basis and results should be correlated with mammographic findings. Electronically signed and approved by: Nikolai Campos M.D. Radiologis
== END | disposition home or self-care (01) ==
LOC: RADMAMWWP 06:52
PROVIDERS: ATTEND Family Medicine
DX: Z12.31 Encounter for screening mammogram for malignant neoplasm of breast (principal); Z78.0 Asymptomatic menopausal state; Z80.3 Family history of malignant neoplasm of breast
CPT/HCPCS: 77063; 77067

== ENCOUNTER 2023-02-24 10:00 | Day surgery (SDC) | payer OTHER ==
[~2023-02-24 10:00] MED LIST changes: +LIDOCAINE 1% (10MG/ML) FOR IV START INTRADERMA PRN
[2023-02-24 10:36] VITALS: TEMP 97.4
[2023-02-24] MEDS ORDERED: LIDOCAINE 2% (PF) 20 MG/ML 5 ML VIAL ONE (11:00)
[2023-02-24] MEDS ORDERED: PROPOFOL 10 MG/ML 20 ML VIAL IV ONE (11:00)
--- NOTE | 2023-02-24 11:17 | P.PCN ---
Date of Procedure: 02/24/23 Procedure(s) Performed: BRIEF HISTORY: Patient is a 62-year-old, pleasant, white female scheduled for an upper endoscopy as a part of evaluation of epigastric pain and intermittent dysphagia to solids for the last few months duration. She is presently on Protonix 40 mg twice daily and Pepcid at bedtime with some relief in her symptoms. PROCEDURE PERFORMED: Esophagogastroduodenoscopy and biopsy. PREOPERATIVE DIAGNOSIS: GERD/intermittent dysphagia to solids. IV sedation per anesthesia. PROCEDURE: After informed consent was obtained, the patient was brought into the endoscopy unit. IV sedation was administered by Anesthesia under continuous monitoring. Initially the Olympus GIF-140 video endoscope was inserted into the mouth. Esophagus intubated without any difficulty. It was gradually advanced into the stomach and duodenum and carefully examined. The bulb and the second part of the duodenum appeared normal. The scope at this time was withdrawn to the stomach, adequately insufflated with air, and upon careful examination, mucosa of the antrum, had mild gastritis and biopsies were done from this area. Mucosa of the body, cardia and the fundus appeared normal. The scope was then withdrawn into the esophagus. The GE junction was located at 39 cm from the incisors. The esophagus appeared normal. There were no erosions or ulcerations seen and biopsies were done from the mid and distal esophagus and the patient tolerated the procedure well. IMPRESSION: 1. Normal-appearing esophagus with no evidence of esophagitis or esophageal stricture. 2. Mild antral gastritis. RECOMMENDATIONS: The findings of this examination were discussed with the patient as well as a family. She was advised to follow with the biopsy results. Continue with Protonix 40 mg twice daily and Pepcid at bedtime and follow antireflux measures.
[2023-02-24 12:19] VITALS: BP 149/81; PULSE 61; RESP 18
== END 2023-02-24 12:29 | disposition home or self-care (01) ==
LOC: ORWHC2ENDO 10:00
PROVIDERS: ATTEND Internal Medicine Gastroenterology
DX: Z79.82 Long term (current) use of aspirin (principal); K31.89 Other diseases of stomach and duodenum; K29.50 Unspecified chronic gastritis without bleeding; K21.9 Gastro-esophageal reflux disease without esophagitis; I10 Essential (primary) hypertension; Z86.73 Personal history of transient ischemic attack (TIA), and cerebral infarction without residual deficits; Z88.0 Allergy status to penicillin; Z79.899 Other long term (current) drug therapy
CPT/HCPCS: 88305; 43239; J2704; J2001

== ENCOUNTER → 2023-06-22 | Outpatient (CLI) | payer OTHER ==
--- NOTE | 2023-06-23 13:50 | MM ---
Reason for Exam: Screening (asymptomatic). Last screening mammogram was performed 12 month(s) ago. Patient History: Menarche at age 17. First Full-Term at age 36. Late child-bearing (after 32). Left ovary removed at age 57. Right ovary removed at age 57. Hysterectomy at age 57. Postmenopausal. Maternal cousin had breast cancer, age 57. Risk Values: Elisa 5 year model risk: 1.8%. NCI Lifetime model risk: 9.1%. Prior Study Comparison: 06/11/2020 Bilateral Screening Mammogram, [facility]. 06/18/2021 Bilateral Screening Mammogram, [facility]. 06/20/2022 Bilateral MG 3D screening mammo w/cad, [facility]. Tissue Density: There are scattered areas of fibroglandular density. Findings: Analyzed By CAD. There is no suspicious group of microcalcifications or new suspicious mass in either breast. Overall Assessment: Negative, BI-RAD 1 Management: Screening Mammogram of both breasts in 1 year. . Patient should continue monthly self-breast exams. A clinical breast exam by your physician is recommended on an annual basis. This exam should not preclude additional follow-up of suspicious palpable abnormalities. Note on Elisa scores and lifetime risk: 1. A Elisa score greater than 3% is considered moderate risk. If this is the case, consider specialist referral to assess eligibility for a risk reducing agent. 2. If overall lifetime risk for the development of breast cancer is 20% or higher, the patient may qualify for future screening with alternating mammogram and breast MRI. Electronically signed and approved by: Nikolai Campos M.D. [facility]
== END | disposition home or self-care (01) ==
LOC: RADMAMWWP 07:14
PROVIDERS: ATTEND Family Medicine
DX: Z12.31 Encounter for screening mammogram for malignant neoplasm of breast (principal); Z78.0 Asymptomatic menopausal state; Z80.3 Family history of malignant neoplasm of breast
CPT/HCPCS: 77063; 77067

== ENCOUNTER → 2023-10-03 | Outpatient (CLI) | payer OTHER | LOC: CPPFTMAIN 14:40 | PROVIDERS: ATTEND Internal Medicine Pulmonary Disease | DX: R07.9 Chest pain, unspecified (principal); I10 Essential (primary) hypertension; J30.9 Allergic rhinitis, unspecified; I20.9 Angina pectoris, unspecified; Z79.899 Other long term (current) drug therapy; Z88.0 Allergy status to penicillin; Z87.891 Personal history of nicotine dependence | CPT/HCPCS: 94060; 94726; 94729 ==